=== PATIENT | female | born 1975 | race Caucasian/White ===

== ENCOUNTER → 2020-04-08 | Day surgery (SDC) | payer OTHER ==
[~2020-04-08] MED LIST: AZELASTINE137 MCG/0.; BUPIVACAINE HCL 0.5% INJ 30 ML VIAL INJ ONE; LIDOCAINE HCL 1% LOCAL INJ 20 ML VIAL ONE; LIDOCAINE HCL 2% LOCAL INJ 5 ML SDV VIAL INJ ONE; MIDAZOLAM HCL 2 MG/2 ML VIAL ONE; NASAL SPRAY30 M1; PROPOFOL IV EMULSION 10 MG/ML 20 ML VIAL ONE
--- NOTE | 2020-04-08 07:10 | NUR ---
SPIRITUAL CARE - Pre-Surgery Assessment: Pt in bed. Pt's at bedside. Pt reported supportive attention from family and friends. Intervention: Calender Let Off Operator provided pastoral presence, hospitality, and sympathetic listening. Acquainted pt with availability of flat drier while hospitalized. Outcome: Pt expressed appreciation for visit. No need for follow up indicated at this time. RONAN Bird Spiritual Care Department O: [phone]
[2020-04-08 09:30] VITALS: BP 113/69
--- NOTE | 2020-04-08 10:18 | Operative Report ---
DATE OF PROCEDURE: 04/08/2020 SURGEON: Jossie Hansen MD PREPROCEDURE DIAGNOSIS: Left carpal tunnel syndrome. POSTPROCEDURE DIAGNOSIS: Left carpal tunnel syndrome. PROCEDURE PERFORMED: Left mini-open carpal tunnel release, peripheral nerve block. COMPLICATIONS: None. SPECIMENS: None. ESTIMATED BLOOD LOSS: Minimal. ANESTHESIA: MAC with local. INDICATIONS FOR PROCEDURE: Chen Burns is a 45-year-old female with a longstanding history of left-sided carpal tunnel syndrome. Her symptoms are refractory to nonoperative management. Benefits of surgery discussed with the patient including bleeding, infection, damage to vascular structures, need for additional surgery, persistent pain, stiffness, possible loss of life or limb, recurrence, need for additional surgery and knowing this, she elected to proceed. DESCRIPTION OF PROCEDURE: The patient was identified in the preoperative holding area and the above-noted site was marked. She was then transported to the operating room, where the above-noted anesthesia was induced. She was placed supine on the table with the left upper extremity on to the hand table. Left upper extremity then underwent a peripheral nerve block to the median nerve using 1% lidocaine and 0.5% Marcaine. Left upper extremity was then prepped and draped in usual sterile fashion. Subsequently a 2.5 cm incision was then made centered along the radial border of the ring finger skin and subcutaneous tissue taking care to achieve careful hemostasis. This was done after the tourniquet was raised to 250 mmHg after the Esmarch exsanguinated the limb. Palmar fascia was divided longitudinally. The transverse carpal ligament was then identified and was then divided in proximal distal fashion. Metzenbaum scissors were then used to release the remainder of the proximal transverse carpal ligament under direct visualization. Attention was then directed distally. The remainder of the transverse carpal ligament was then divided distally under direct visualization curved Iris scissors. At this point, we then had a complete decompression of the median nerve and . At this point, we were then satisfied with the carpal tunnel release. The wound was then copiously irrigated. Skin was then closed with 4-0 nylon sutures in a horizontal mattress fashion. Soft sterile dressing was then placed and tourniquet was let down and the fingers pinked up nicely. The patient was then awoken from anesthesia and taken to PACU in stable condition. POSTOPERATIVE PLAN: The patient will be discharged home today. She will see back in clinic in 10 to 14 days for suture removal. MD ADRIANNA Parada/MODL /[id number]
== END | disposition home or self-care (01) ==
LOC: OR 06:21
PROVIDERS: ATTEND Orthopaedic Surgery
DX: G56.02 Carpal tunnel syndrome, left upper limb (principal); K44.9 Diaphragmatic hernia without obstruction or gangrene; Z88.8 Allergy status to other drugs, medicaments and biological substances; Z01.812 Encounter for preprocedural laboratory examination; Z11.59 Encounter for screening for other viral diseases
CPT/HCPCS: 64721; 81025; J2001 ×2; J2250; J2704; U0002

== ENCOUNTER → 2020-06-03 | Day surgery (SDC) | payer OTHER ==
[~2020-06-03] MED LIST changes: +CEFAZOLIN SOD 1 GM VIAL ONE; +FENTANYL CITRATE/PF 100MCG/2 ML INJ ONE; +KETOROLAC TROMETHAMINE 30 MG/ML VIAL ONE; +ONDANSETRON HCL INJ 2MG/ML 2ML 2 MG/ML VIAL ONE; +SEVOFLURANE INHAL SOLN 250 ML PEN BTL ONE; +TYLENOL EXTRA500 MG PO
[2020-06-03 11:00] VITALS: BP 115/71
== END | disposition home or self-care (01) ==
LOC: OR 06:05
PROVIDERS: ATTEND Orthopaedic Surgery
DX: G56.01 Carpal tunnel syndrome, right upper limb (principal); R05 Cough; K44.9 Diaphragmatic hernia without obstruction or gangrene; F41.9 Anxiety disorder, unspecified; Z88.8 Allergy status to other drugs, medicaments and biological substances; Z01.812 Encounter for preprocedural laboratory examination; Z20.828 Contact with and (suspected) exposure to other viral communicable diseases
CPT/HCPCS: 14020; 25115; 81025; J0690; J1885; J2001 ×2; J2250; J2405; J2704; J3010; U0002